=== PATIENT | male | born 1975 | race Caucasian/White ===

== ENCOUNTER 2020-09-07 19:40 | Inpatient (IN) | payer OTHER ==
[~2020-09-07] VITALS: Ht 172.7 cm; Wt 83.9 kg
[~2020-09-07 19:40] MED LIST: ACCUPRIL20 MG PO; ASPIRIN CHEWABL81 MG PO; ASPIRIN EC81 MG PO; HUMALOG 10100 UNITS/ SC; HUMULIN 70100 UNIT/1 SC; HUMULIN 70100 UNIT/1 SQ; HUMULIN R100 UNIT/1 INJ; HUMULIN R100 UNIT/1 SQ; IMDUR ER TAB 3030 MG PO; LANTUS INS100 UTS/M1 SQ; LASIX20 MG PO; LEVEMIR100 UNIT/1 SQ; LIPITOR TAB 2020 MG PO; LISINOPRIL-HCT1 EAC2 PO; LOPRESSOR 25 MG25 MG PO; NOVOLOG MI100 UNIT/1 SQ; PLAVIX 75 MG TA75 MG PO; PRAVACHOL40 MG PO; PRILOSEC OTC20 MG PO; PRINIVIL5 MG PO; PROTONIX40 MG PO; ULTRAM50 MG PO; ZESTORETIC 20-1 EAC1 PO; ZYVOX600 MG PO; [UNRECOGNIZED DRUG - CODE] SQ
[2020-09-08 05:56] LABS: HEMOGLOBIN 9.7 gm/dl (14.0-17.5); RED BLOOD COUNT 3.49 M/UL (4.20-5.50)
[2020-09-08 06:18] LABS: BUN/CREATININE RATIO 21 (0-10)
--- NOTE | 2020-09-08 18:53 | NUR ---
ORDER NOTED FOR WOUND CARE. UNABLE TO CHANGE DRESSING R/T PT OFF FLOOR FOR MRI, HAVING VENOUS DOPPLER DONE, AND REFUSING DRESSING UNTIL PAIN MEDS ORDERED. MD NOTIFIED AND ORDER OBTAINED FOR PAIN MEDS.
[2020-09-09 05:31] LABS: HEMOGLOBIN 10.8 gm/dl (14.0-17.5); RED BLOOD COUNT 3.92 M/UL (4.20-5.50); WHITE BLOOD COUNT 6.3 K/UL (4.5-11.0)
[2020-09-09 05:47] LABS: BUN/CREATININE RATIO 16 (0-10)
[2020-09-10 04:48] LABS: HEMOGLOBIN 10.2 gm/dl (14.0-17.5); RED BLOOD COUNT 3.71 M/UL (4.20-5.50)
[2020-09-10 05:02] LABS: BUN/CREATININE RATIO 11 (0-10)
[2020-09-11 05:54] LABS: HEMOGLOBIN 9.4 gm/dl (14.0-17.5); RED BLOOD COUNT 3.4 M/UL (4.20-5.50); WHITE BLOOD COUNT 5.3 K/UL (4.5-11.0)
[2020-09-11 06:09] LABS: BUN/CREATININE RATIO 11 (0-10)
[2020-09-12 06:17] LABS: BUN/CREATININE RATIO 13 (0-10)
[2020-09-12 06:33] LABS: HEMOGLOBIN 11.1 gm/dl (14.0-17.5); RED BLOOD COUNT 4.01 M/UL (4.20-5.50); WHITE BLOOD COUNT 5.1 K/UL (4.5-11.0)
[2020-09-13 04:07] LABS: HEMOGLOBIN 9.7 gm/dl (14.0-17.5); WHITE BLOOD COUNT 5.4 K/UL (4.5-11.0)
[2020-09-13 04:11] LABS: RED BLOOD COUNT 3.55 M/UL (4.20-5.50)
[2020-09-13 04:32] LABS: BUN/CREATININE RATIO 17 (0-10)
--- NOTE | 2020-09-13 11:39 | NUR ---
PTS BLOOD GLUCOSE 19,JEANNETTE MONDRAGON PRESENT 1 AMP OF D5 GIVEN VIA CVP, D5 1/2 NS HUNG AT 125CC/HR, AFTER 10 MINUTES PTS BG RECHECKED AT 147., WCTM
[2020-09-14 06:02] LABS: HEMOGLOBIN 9.9 gm/dl (14.0-17.5); RED BLOOD COUNT 3.71 M/UL (4.20-5.50); WHITE BLOOD COUNT 5.4 K/UL (4.5-11.0)
[2020-09-14 06:23] LABS: BUN/CREATININE RATIO 12 (0-10)
--- NOTE | 2020-09-14 18:31 | NUR ---
PT RETURN FROM PACU. A/O SITTING UP. SURGICAL DRESSING IN TACT WITH WOUND VAC ON. WNL
[2020-09-14 23:15] LABS: BUN/CREATININE RATIO 19 (0-10)
[2020-09-15 03:10] LABS: HEMOGLOBIN 9.9 gm/dl (14.0-17.5); RED BLOOD COUNT 3.67 M/UL (4.20-5.50)
[2020-09-15 03:42] LABS: BUN/CREATININE RATIO 18 (0-10)
[2020-09-18 07:00] LABS: BUN/CREATININE RATIO 19 (0-10)
[2020-09-19 05:36] LABS: HEMOGLOBIN 10.5 gm/dl (14.0-17.5); RED BLOOD COUNT 3.89 M/UL (4.20-5.50); WHITE BLOOD COUNT 6.5 K/UL (4.5-11.0)
[2020-09-19 05:45] LABS: BUN/CREATININE RATIO 16 (0-10)
[2020-09-19] MEDS ORDERED: ASPIRIN EC81 MG PO (09:07)
[2020-09-19] MEDS ORDERED: CRESTOR 10 MG T10 MG PO (09:07)
[2020-09-19] MEDS ORDERED: AMOX TR-K CLV1 EAC4 PO (09:07)
[2020-09-19] MEDS ORDERED: ZYVOX600 MG PO (09:07)
[2020-09-19] MEDS ORDERED: FISH OIL EC 1,1 EACH PO (09:07)
[2020-09-19] MEDS ORDERED: HYDROCODON-ACE1 EAC2 PO ×2 (09:07→15:02)
[2020-09-19] MEDS ORDERED: CLOPIDOGREL75 MG PO (09:07)
== END 2020-09-19 18:25 | disposition home health service (06) | DRG 253 ==
LOC: MED SURG 4 19:40 → M/S 22:37
PROVIDERS: Internal Medicine; Internal Medicine Infectious Disease; Physician Assistant; Surgery; ADMIT Internal Medicine
PROC: 047Q3ZZ Dilation of Left Anterior Tibial Artery, Percutaneous Approach (ICD-10-PCS; 2020-09-13)
PROC: B41DYZZ Fluoroscopy of Aorta and Bilateral Lower Extremity Arteries using Other Contrast (ICD-10-PCS; principal; 2020-09-13 17:00)
PROC: 0JDP0ZZ Extraction of Left Lower Leg Subcutaneous Tissue and Fascia, Open Approach (ICD-10-PCS; 2020-09-14)
PROC: 0J9R0ZZ Drainage of Left Foot Subcutaneous Tissue and Fascia, Open Approach (ICD-10-PCS; 2020-09-14)
PROC: 0HRNXK3 Replacement of Left Foot Skin with Nonautologous Tissue Substitute, Full Thickness, External Approach (ICD-10-PCS; 2020-09-14)
DX: E10.52 Type 1 diabetes mellitus with diabetic peripheral angiopathy with gangrene (principal); L97.429 Non-pressure chronic ulcer of left heel and midfoot with unspecified severity; I96 Gangrene, not elsewhere classified; E44.1 Mild protein-calorie malnutrition; L03.116 Cellulitis of left lower limb; L97.422 Non-pressure chronic ulcer of left heel and midfoot with fat layer exposed; E10.621 Type 1 diabetes mellitus with foot ulcer; B19.20 Unspecified viral hepatitis C without hepatic coma; I10 Essential (primary) hypertension; Z88.5 Allergy status to narcotic agent; F17.210 Nicotine dependence, cigarettes, uncomplicated; E10.65 Type 1 diabetes mellitus with hyperglycemia; D64.9 Anemia, unspecified; Z91.19 Patient's noncompliance with other medical treatment and regimen; Z86.14 Personal history of Methicillin resistant Staphylococcus aureus infection; Z80.1 Family history of malignant neoplasm of trachea, bronchus and lung; Z20.822 Contact with and (suspected) exposure to COVID-19; Z79.4 Long term (current) use of insulin; B95.62 Methicillin resistant Staphylococcus aureus infection as the cause of diseases classified elsewhere
CPT/HCPCS: 36415; 73718; 76000; 80048; 80053; 80202; 82947; 82962; 83036; 83735; 85025; 85027; 86140; 86850; 86900; 86901; 87040; 87070; 87077; 87186; 87205; 93926; 97161; 97165; A6212; C1725; C1769; J1170; J1644; J1650; J2001; J2250; J2270; J2405; J2543; J2704; J2710; J2720; J3010; J3370; J7030; J7040; J7050; J7070; J7120; Q4133; Q9962; U0002